=== PATIENT | male | born 1960 | race Caucasian/White ===

== ENCOUNTER 2021-05-15 01:27 | Inpatient (IN) ==
[2021-05-15] MEDS ORDERED: Ondansetron 4 MG/2 ML VIAL IVP ONE (01:56)
[2021-05-15 02:08] LABS: Hematocrit 44.2 % (37.5-50.1); Hemoglobin 15.1 g/dL (12.9-16.9); Mean Corpuscular HGB Conc 34.2 g/dL (31.6-35.5); Mean Corpuscular Hemoglobin 28.6 pg (28.0-33.3); Mean Corpuscular Volume 83.7 fL (83.0-100.0); Mean Platelet Volume 10.4 fL (9.4-12.4); Platelet Count 192 K/mcL (140-400); Red Blood Count 5.28 M/mcL (4.19-5.50); White Blood Count 6.3 K/mcL (4.3-11.1)
[2021-05-15 02:20] LABS: INR 1.2; Prothrombin Time 13.5 Seconds (9.4-12.1)
[2021-05-15 02:22] LABS: Activated Partial Thrombo Time 29.2 Seconds (26.0-36.0)
[2021-05-15] MEDS: 0.9 % Sodium Chloride 1,000 ML IVC SCH ×2 (02:23→03:16)
[2021-05-15 02:28] LABS: Troponin I < 0.03 ng/mL (< 0.04)
[2021-05-15 02:32] LABS: Alanine Aminotransferase 44 Units/L (7-52); Albumin 3.6 g/dL (3.5-5.7); Albumin/Globulin Ratio 1.2 (1.1-2.2); Alkaline Phosphatase 31 Units/L (34-104); Aspartate Amino Transferase 87 Units/L (13-39); BUN/Creatinine Ratio 15 (6-26); Bilirubin,Direct 0.3 mg/dL (0.0-0.2); Bilirubin,Indirect 0.6 mg/dL (0.0-1.0); Bilirubin,Total 0.9 mg/dL (0.3-1.0); Blood Urea Nitrogen 17 mg/dL (6-20); Carbon Dioxide 25 mEq/L (23-29); Chloride 98 mEq/L (98-107); Glucose 111 mg/dL (70-105); Lipase 268 Units/L (11-82); Magnesium 2.6 mg/dL (1.6-2.6); Osmolality,Calculated 282 (280-300); Phosphorous 2.6 mg/dL (2.7-4.5); Potassium 3.6 mEq/L (3.5-5.1); Sodium 135 mEq/L (136-145); Total Protein 6.6 g/dL (6.4-8.9); eGFR For African Americans > 60 (> 60); eGFR For Non-African Americans > 60 (> 60)
[2021-05-15 02:40] LABS: Lymphocytes # 0.9 K/mcL (0.6-4.6); Neutrophils # 5.4 K/mcL (1.6-8.9)
[2021-05-15 02:41] LABS: Anisocytosis 1+ (Not Present); Dohle Bodies Present (Not Present); Platelet Estimate Normal (Normal)
[2021-05-15 02:42] LABS: Toxic Vacuolation Present (Not Present)
[2021-05-15] MEDS ORDERED: Azithromycin 500 MG in 0.9 % Sodium Chloride 250 ML IVPB ONE (03:08)
[2021-05-15] MEDS ORDERED: Naloxone 0.4 MG/ML INJ IVP PRN (05:16)
[2021-05-15] MEDS ORDERED: Ondansetron 4 MG/2 ML VIAL IVP PRN (05:16)
[2021-05-15] MEDS ORDERED: Ipratropium/Albuterol Neb 3 ML IH SCH (05:16)
[2021-05-15] MEDS ORDERED: 0.9 % Sodium Chloride 1,000 ML IVC SCH (05:16)
[2021-05-15] MEDS ORDERED: Ketorolac 30 MG/ML VIAL IVP ONE (05:32)
[2021-05-15] MEDS: polyethylene glycoL 3350 17 GM POWD.PACK PO PRN (06:01)
[2021-05-15] MEDS ORDERED: Ketorolac 15 MG/ML VIAL IVP PRN (08:18)
[2021-05-15] MEDS ORDERED: D5% in Water 1,000 ML IVC PRN (08:19)
[2021-05-15] MEDS ORDERED: *HR* Dextrose 50 % in Water (Syg) 50 ML SYRINGE IVP PRN (08:19)
[2021-05-15] MEDS ORDERED: Dextrose Gel 15 GM/37.5 ML TUBE PO PRN ×2 (08:19)
[2021-05-15] MEDS: Ipratropium 1 PUFF INHALER IH SCH ×2 (09:13→15:27)
[2021-05-15] MEDS ORDERED: Losartan/HCTZ 50-12.5 TABLET PO SCH (11:15)
[2021-05-15] MEDS: amLODIPine 5 MG TABLET PO SCH (11:33)
[2021-05-15] MEDS: Metoprolol XL (24 HR) Succ 50 MG TAB.ER.24H PO SCH (11:34)
[2021-05-15] MEDS: Apixaban 5 MG TABLET PO SCH ×2 (11:37→22:21)
[2021-05-15 12:04] LABS: Chol/HDL Ratio 3.7 (0-4.9)
[2021-05-15] MEDS ORDERED: hydrALAZINE 10 MG TABLET PO PRN ×2 (13:30→13:31)
[2021-05-15 14:07] LABS: ABG Base Excess -2 mEq/L (-2 to 3); ABG HCO3 23 mEq/L (21-27); ABG Oxygen Saturation 87 % (95-98); ABG PCO2 37 mmHg (35-45); ABG PO2 53 mmHg (85-104); ABG TCO2 24 mEq/L (20-26)
[2021-05-15 14:21] LABS: Chol/HDL Ratio 3.9 (0-4.9)
[2021-05-15] MEDS: Insulin LISPRO 300 UNITS/3 ML VIAL SUBQ SCH ×3 (14:33→22:22)
[2021-05-15] MEDS: Azithromycin 500 MG in 0.9 % Sodium Chloride 250 ML IVPB SCH (17:52)
[2021-05-15] MEDS: cefTRIAXone 1,000 MG in 0.9 % Sodium Chloride Mini Bag 100 ML IVPB SCH (17:53)
[2021-05-15 21:19] LABS: Ferritin 1311 ng/mL (20-250)
[2021-05-15 21:34] LABS: C-Reactive Protein 55 mg/L (Less than 10)
[2021-05-15 21:44] LABS: Estimated Average Glucose 143 mg/dl; Hemoglobin A1C 6.6 %
[2021-05-15] MEDS: tiZANidine 4 MG TABLET PO SCH (22:21)
[2021-05-15] MEDS: rOPINIRole 0.25 MG TABLET PO SCH (22:21)
[2021-05-16] MEDS: Ipratropium 1 PUFF INHALER IH SCH ×5 (00:21→20:38)
[2021-05-16 09:10] LABS: Bilirubin,Urine Moderate (Negative); Blood,Urine Negative (Negative); Clarity,Urine Clear (Clear); Color,Urine Yellow (Yellow); Glucose,Urine (UA) 100 mg/dL (Normal); Ketones,Urine Trace mg/dL (Negative); Leukocyte Esterase,Urine Negative (Negative); Nitrite,Urine Negative (Negative); Protein,Urine 100 mg/dL (Neg-Trace); Specific Gravity,Urine >= 1.030 (1.010-1.025); Urobilinogen,Urine >=8.0 mg/dL (Normal)
[2021-05-16 09:13] LABS: Bacteria,Urine Many per hpf (None-Few); Mucus,Urine Many per lpf (None-Few)
[2021-05-16 09:31] LABS: Basophils % 0.2 %; Hemoglobin 14.2 g/dL (12.9-16.9); Immature Granulocytes % 1.1 % (0-4); Lymphocytes % 8.1 %; Mean Corpuscular HGB Conc 33.8 g/dL (31.6-35.5); Mean Corpuscular Volume 85.7 fL (83.0-100.0); Mean Platelet Volume 10.7 fL (9.4-12.4); Monocytes # 0.5 K/mcL (0.0-1.3); Monocytes % 4.1 %; Neutrophils # 10.3 K/mcL (1.6-8.9); Nucleated Red Blood Cells 0.2 /100 WBC (0); Platelet Count 222 K/mcL (140-400); Segmented Neutrophils % 86.5 %; White Blood Count 11.9 K/mcL (4.3-11.1)
[2021-05-16 10:03] LABS: Albumin 3.1 g/dL (3.5-5.7); Bilirubin,Direct 0.2 mg/dL (0.0-0.2); Bilirubin,Indirect 0.6 mg/dL (0.0-1.0); Bilirubin,Total 0.8 mg/dL (0.3-1.0); Globulin 3.1 g/dL (2.4-3.5); Total Protein 6.2 g/dL (6.4-8.9)
[2021-05-16] MEDS: Apixaban 5 MG TABLET PO SCH ×2 (10:05→21:30)
[2021-05-16] MEDS: Insulin LISPRO 300 UNITS/3 ML VIAL SUBQ SCH ×4 (10:05→21:12)
[2021-05-16] MEDS: amLODIPine 5 MG TABLET PO SCH (10:05)
[2021-05-16] MEDS: polyethylene glycoL 3350 17 GM POWD.PACK PO PRN (10:06)
[2021-05-16] MEDS: Metoprolol XL (24 HR) Succ 50 MG TAB.ER.24H PO SCH (10:06)
[2021-05-16 10:47] LABS: Calcium 8.9 mg/dL (8.6-10.3); Potassium 5.4 mEq/L (3.5-5.1)
[2021-05-16] MEDS: Ringers Solution, Lactated 1,000 ML IVC SCH ×2 (11:04→23:43)
[2021-05-16] MEDS: Azithromycin 500 MG in 0.9 % Sodium Chloride 250 ML IVPB SCH (17:13)
[2021-05-16] MEDS: cefTRIAXone 1,000 MG in 0.9 % Sodium Chloride Mini Bag 100 ML IVPB SCH (17:13)
[2021-05-16] MEDS ORDERED: Isovue-370 500 ML BOTTLE IVP ONE (17:14)
[2021-05-16] MEDS ORDERED: Furosemide 40 MG/4 ML VIAL IVP ONE (17:44)
[2021-05-16 21:27] LABS: BUN/Creatinine Ratio 18 (6-26); Blood Urea Nitrogen 18 mg/dL (6-20); Calcium 7.7 mg/dL (8.6-10.3); Carbon Dioxide 29 mEq/L (23-29); Chloride 101 mEq/L (98-107); Glucose 118 mg/dL (70-105); Osmolality,Calculated 289 (280-300); Potassium 3.5 mEq/L (3.5-5.1); Sodium 138 mEq/L (136-145); eGFR For African Americans > 60 (> 60); eGFR For Non-African Americans > 60 (> 60)
[2021-05-16] MEDS: rOPINIRole 0.25 MG TABLET PO SCH (21:30)
[2021-05-16] MEDS: tiZANidine 4 MG TABLET PO SCH (21:30)
[2021-05-16] MEDS ORDERED: Morphine Sulfate 2 MG/ML SYRINGE IVP ONE (23:16)
[2021-05-17] MEDS ORDERED: 0.9 % Sodium Chloride 250 ML IVC ONE ×2 (00:59→01:42)
[2021-05-17] MEDS: Ipratropium 1 PUFF INHALER IH SCH ×2 (04:16→10:39)
[2021-05-17] MEDS: amLODIPine 5 MG TABLET PO SCH (08:09)
[2021-05-17] MEDS: Metoprolol XL (24 HR) Succ 50 MG TAB.ER.24H PO SCH (08:09)
[2021-05-17] MEDS: Insulin LISPRO 300 UNITS/3 ML VIAL SUBQ SCH ×2 (08:11→12:52)
[2021-05-17 08:43] LABS: Basophils % 0.3 %; Eosinophils # 0.2 K/mcL (0.0-0.6); Eosinophils % 2.9 %; Hematocrit 36.5 % (37.5-50.1); Lymphocytes % 16.9 %; Mean Corpuscular Hemoglobin 28.7 pg (28.0-33.3); Mean Corpuscular Volume 84.5 fL (83.0-100.0); Mean Platelet Volume 10.3 fL (9.4-12.4); Monocytes # 0.4 K/mcL (0.0-1.3); Monocytes % 7.1 %; Neutrophils # 4.2 K/mcL (1.6-8.9); Platelet Count 205 K/mcL (140-400); Red Blood Count 4.32 M/mcL (4.19-5.50); Segmented Neutrophils % 71.8 %
[2021-05-17 08:45] LABS: Hemoglobin 12.4 g/dL (12.9-16.9); White Blood Count 5.8 K/mcL (4.3-11.1)
[2021-05-17 09:04] LABS: Alanine Aminotransferase 31 Units/L (7-52); Albumin 2.7 g/dL (3.5-5.7); Alkaline Phosphatase 24 Units/L (34-104); Aspartate Amino Transferase 42 Units/L (13-39); BUN/Creatinine Ratio 21 (6-26); Bilirubin,Total 0.7 mg/dL (0.3-1.0); Blood Urea Nitrogen 18 mg/dL (6-20); Calcium 7.5 mg/dL (8.6-10.3); Carbon Dioxide 30 mEq/L (23-29); Chloride 102 mEq/L (98-107); Globulin 2.7 g/dL (2.4-3.5); Glucose 118 mg/dL (70-105); Magnesium 2.2 mg/dL (1.6-2.6); Osmolality,Calculated 291 (280-300); Potassium 3.7 mEq/L (3.5-5.1); Sodium 139 mEq/L (136-145); Total Protein 5.4 g/dL (6.4-8.9); eGFR For African Americans > 60 (> 60); eGFR For Non-African Americans > 60 (> 60)
[2021-05-17] MEDS: Apixaban 5 MG TABLET PO SCH (09:28)
[2021-05-17 11:01] VITALS: O2SAT 93
[2021-05-17] MEDS: Ringers Solution, Lactated 1,000 ML IVC SCH (13:58)
[2021-05-17 14:05] VITALS: BP 124/81; PULSE 63; RESP 31; TEMP 97.6
[2021-05-17 17:05] LABS: C-Reactive Protein 51 mg/L (Less than 10)
[2021-05-17 17:23] LABS: Ferritin 1002 ng/mL (20-250)
== END 2021-05-17 16:05 | disposition short-term general hospital (02) | DRG 177 ==
LOC: SUPCPDRO → EMEROOPIK 01:27 → INPPIK 01:27
PROVIDERS: ADMIT Internal Medicine; ATTEND Internal Medicine